=== PATIENT | male | born 2000 | race Caucasian/White ===

== ENCOUNTER 2021-08-09 15:04 | Emergency (ER) | payer MEDICAID ==
[~2021-08-09] VITALS: Ht 180.3 cm; Wt 72.0 kg
== END 2021-08-09 18:12 | disposition home or self-care (01) ==
LOC: ED 15:04
DX: K21.9 Gastro-esophageal reflux disease without esophagitis (principal); R10.31 Right lower quadrant pain; Z88.7 Allergy status to serum and vaccine
CPT/HCPCS: 36415; 74176; 80053; 81001; 83690; 85025; 96374; 99284-25; J1885; J7030